=== PATIENT | male | born 1985 | race Caucasian/White ===

== ENCOUNTER 2024-07-23 06:33 | Day surgery (SDC) | payer OTHER, SELFPAY ==
[2024-07-23] VITALS (9 sets, daily range): BP systolic 92–123; BP diastolic 56–81; BMI 23.4
--- NOTE | 2024-07-23 14:08 | W.SUR.PREOP ---
Pre-Operative Surgical Note
-
I have examined this patient prior to the performance of the scheduled procedure.
The patient's condition is unchanged from the time of the current History and
Physical and the patient is able to undergo the scheduled procedure.
[2024-07-23] MEDS: DETROL LA 4 MG PO (15:41)
[2024-07-23] MEDS: SUBLIMAZE 25 MCG IV (15:44)
== END 2024-07-23 17:20 | disposition home or self-care (01) ==
LOC: SDS 06:33
PROVIDERS: ATTENDING PHYSICIAN Surgery
DX: N35.919 Unspecified urethral stricture, male, unspecified site (principal); R30.0 Dysuria; R33.9 Retention of urine, unspecified
CPT/HCPCS: 52284; 74018; 76000; C1726; C1769